=== PATIENT | female | born 1935 | race Caucasian/White ===

== ENCOUNTER 2018-06-25 08:11 | Outpatient (CLI) | payer MEDICARE ==
[2018-06-25] VITALS (11 sets, daily range): BP systolic 125–145; BP diastolic 44–68
[~2018-06-25] VITALS: Ht 149.9 cm; Wt 69.5 kg
[2018-06-25] MEDS ORDERED: regadenoson 0.4mg/5ml syringe IV ONE ×2 (08:50→09:43)
[2018-06-25] MEDS ORDERED: normal saline 1000ml 1,000 ML IV SCH (08:55)
[2018-06-25] MEDS ORDERED: nitroGLYCERIN 0.4mg SUBLingual tab SL PRN (08:55)
[2018-06-25] MEDS ORDERED: aminophylline 250mg/10ml inj. IV PRN (08:55)
[2018-06-25] MEDS ORDERED: aminophylline inj. 10 ML IV ONE (09:43)
== END 2018-06-25 23:59 | disposition home or self-care (01) ==
LOC: RAD 08:11
PROVIDERS: ATTEND Internal Medicine Cardiovascular Disease
DX: Z01.810 Encounter for preprocedural cardiovascular examination (principal); R94.31 Abnormal electrocardiogram [ECG] [EKG]; Z87.891 Personal history of nicotine dependence; Z88.0 Allergy status to penicillin
CPT/HCPCS: 78452; 93017; A9500; J0280; J7030

== ENCOUNTER 2022-07-04 05:32 | Day surgery (SDC) | payer MEDICARE, MEDICAID ==
[2022-06-27 15:35] LABS: CLARITY,URINE CLOUDY (Clear); COLOR,URINE YELLOW (Yellow); GLUCOSE, URINE NEGATIVE (Neg); KETONES,URINE 15 mg/dl (Neg); LEUKOCYTE ESTERASE ,URINE TRACE (Neg); NITRITES, URINE NEGATIVE (Neg); OCCULT BLOOD,URINE NEGATIVE (Neg); PROTEIN,URINE NEGATIVE (Neg); UROBILINOGEN,URINE 0.2 E.U/dL (0.2-1.0)
[2022-06-27 15:36] LABS: BASOPHILS % (AUTO) 0.7 % (0-1); EOSINOPHILS # (AUTO) 0.1 X10'3 (0-0.9); LYMPHOCYTES # (AUTO) 2.4 X10'3 (1.1-4.8); LYMPHOCYTES % (AUTO) 37.6 % (21-51); MEAN CORPUSCULAR HEMOGLOBIN 31.6 PG (27.0-31.0); MEAN CORPUSCULAR HGB CONC 32.8 g/dL (33.0-36.5); MEAN CORPUSCULAR VOLUME 96.2 FL (78-98); MEAN PLATELET VOLUME 8.7 FL (7.4-10.4); MONOCYTES # (AUTO) 0.8 X10'3 (0-0.9); MONOCYTES % (AUTO) 12.1 % (2-12); NEUTROPHILS # (AUTO) 3.1 X10'3 (1.8-7.7); NEUTROPHILS % (AUTO) 48.6 % (42-75); PRE OP HEMATOCRIT 38.6 % (35.0-45.0); PRE OP HEMOGLOBIN 12.7 g/dL (12.0-16.0); PRE OP PLATELET COUNT 164 X10'3 (140-440); RED BLOOD COUNT 4.01 X10'6 (4.20-5.60); RED CELL DISTRIBUTION WIDTH 15.1 % (11.5-14.5)
[2022-06-27 15:38] LABS: UA COLLECTION TYPE CLN CATCH MIDSTREAM
[2022-06-27 15:53] LABS: BACTERIA,URINE 1+ /HPF (Neg); MUCUS STRANDS MODERATE /LPF (Neg); RBC,URINE 0-2 /HPF (0-2); SQUAMOUS EPITHELIAL CELL,UR MODERATE /LPF (FEW); TRANSITIONAL EPI CELLS,URINE FEW /HPF
[2022-06-27 15:54] LABS: ALBUMIN 3.6 G/DL (3.4-5.0); ALBUMIN/GLOBULIN RATIO 0.8 (1.1-1.5); ALKALINE PHOSPHATASE 25 IU/L (46-116); BLOOD UREA NITROGEN 21 MG/DL (7-18); BUN/CREATININE RATIO 21.2 (6.6-38.0); CALCIUM 9.2 MG/DL (8.5-10.1); CHLORIDE 107 MMOL/L (99-107); CREATININE 0.99 MG/DL (0.40-0.90); PRE OP ALT 22 U/L (30-65); PRE OP ANION GAP 6 (8-16); PRE OP AST 24 U/L (10-37); PRE OP BILIRUB, TOTAL 0.3 MG/DL (0.0-1.0); PRE OP GLUCOSE 115 MG/DL (70-104); PRE OP POTASSIUM 4.4 MMOL/L (3.4-5.1); PRE OP SODIUM 143 MMOL/L (135-145); TOTAL CARBON DIOXIDE 30.1 MMOL/L (24-32); TOTAL PROTEIN 8.1 G/DL (6.4-8.2); eGFR 53 ML/MIN
[~2022-07-04] VITALS: Ht 149.9 cm; Wt 70.3 kg
[2022-07-04] VITALS (9 sets, daily range): BP systolic 127–151; BP diastolic 59–70
[~2022-07-04 05:32] MED LIST: ALEN70TA80 PO; CALC-854 PO; CAPS42.514 TOP; FERR325T32 PO; FOLI1TAB27 PO; METH2.5T PO; OMEP20TA23 PO; [UNRECOGNIZED DRUG - OTHER]; clindamycin-Cleocin 900mg/D5W 50 ML IV ONE; famotidine 20mg tablet PO ONE; ringers solution, lacted 1,000 ML IV SCH
--- NOTE | 2022-07-04 06:40 | NUR ---
PATIENT STATES DNR - INFORMED OF FULL CODE IN OR AND PATIENT AGREES. Addendum: 07/04/22 at 0707 by Chema Salinas RN RN Amended: Links added.
[2022-07-04] MEDS ORDERED: BUPIVAcaine/PF 5 mg/ml 10ml ONE (07:02)
[2022-07-04] MEDS ORDERED: ROPIVAcaine 0.5% (5mg/ml) 30ml vial ONE (07:02)
[2022-07-04] MEDS ORDERED: bacitracin 15gm ointment TP ONE (07:03)
[2022-07-04] MEDS ORDERED: sevoflurane 250ml liquid IH ONE (07:17)
[2022-07-04] MEDS ORDERED: fentaNYL/PF 50MCG/1 ML 2ML syringe ONE (07:17)
[2022-07-04] MEDS ORDERED: midazolam 1 mg/ML 2ml injection ONE (07:17)
[2022-07-04] MEDS ORDERED: ondansetron/PF 4mg/2ml inj ONE (07:17)
[2022-07-04] MEDS ORDERED: LIDOcaine 2% (20mg/ml) 5ml vial ONE (07:21)
[2022-07-04] MEDS ORDERED: propofol inj 20 ML IV ONE (07:21)
[2022-07-04] MEDS ORDERED: BUPIVAcaine/PF 7.5mg/ml (0.75%) 10ml vial ONE (07:37)
[2022-07-04] MEDS ORDERED: dexamethasone sod phosphate 4mg/ml inj. ONE (07:37)
[2022-07-04] MEDS ORDERED: LIDOcaine 1%/PF 5ML 10 MG/ML VIAL ONE (07:37)
[2022-07-04] MEDS ORDERED: meperidine/PF 25mg/ml syringe IV PRN ×3 (08:00)
[2022-07-04] MEDS ORDERED: proCHLORperazine 10 MG/2 ml inj IV PRN (08:00)
[2022-07-04] MEDS ORDERED: morphine 2 MG/ML inj. syringe IV PRN (08:00)
[2022-07-04] MEDS ORDERED: ondansetron/PF 4mg/2ml inj IV PRN (08:00)
[2022-07-04] MEDS ORDERED: ringers solution, lacted 1,000 ML IV SCH (08:00)
[2022-07-04] MEDS ORDERED: morphine 4 MG/ML inj SYRINge IV PRN (08:00)
[2022-07-04] MEDS ORDERED: acetaminophen 1,000mg/100ml IV 100 ML IV ONE (08:32)
--- NOTE | 2022-07-04 08:45 | NUR ---
Received from OR via , accompanied by Anesthesiologist TRIP AND OR NURSE and report given by Anesthesiolgist. PT IS DROWSY YET REPSONDS TO VERBAL STIMULI. DENIES PAIN OR DISCOMFORT. RT FOOT IN GAUZE, ANAHY WRAP AND BOOT IN PLACE; CDI. VSS Addendum: 07/04/22 at 0903 by Melany Moser RN Amended: Links added.
--- NOTE | 2022-07-04 09:55 | NUR ---
I HAVE REVIEWED D/C INSTRUCTIONS WITH PATIENT AND THEY HAVE VERBALIZED UNDERSTANDING OF INSTRUCTIONS. PATIENT D/C HOME WITH ALL BELONGINGS AND FAMILY GAVE TRANSPORT Addendum: 07/04/22 at 1010 by Melany Moser RN Amended: Links added.
== END 2022-07-04 09:55 | disposition home or self-care (01) ==
LOC: PAS 05:32
PROVIDERS: ATTEND Podiatrist Foot & Ankle Surgery
DX: M20.21 Hallux rigidus, right foot (principal); G89.18 Other acute postprocedural pain; M06.9 Rheumatoid arthritis, unspecified; K21.9 Gastro-esophageal reflux disease without esophagitis; M81.0 Age-related osteoporosis without current pathological fracture; M16.11 Unilateral primary osteoarthritis, right hip; Z90.710 Acquired absence of both cervix and uterus; Z98.890 Other specified postprocedural states; Z96.641 Presence of right artificial hip joint; Z87.891 Personal history of nicotine dependence; Z88.0 Allergy status to penicillin; Z72.89 Other problems related to lifestyle; Z79.899 Other long term (current) drug therapy; Z82.49 Family history of ischemic heart disease and other diseases of the circulatory system; Z82.0 Family history of epilepsy and other diseases of the nervous system
CPT/HCPCS: 28750; 36415; 64450; 73620; 76000; 80053; 81001; 82948; 85025; 87088; A6223; C1713; J0131; J1100; J2250; J2405; J2704; J3010; J3490; J7030; J7120; Z7506; Z7508; Z7512; A4215; A4618; A6449; A7000; J2795

== ENCOUNTER 2024-08-18 08:33 | Outpatient (CLI) | payer MEDICARE, MEDICAID ==
[~2024-08-18] VITALS: Ht 148.6 cm; Wt 69.9 kg
[~2024-08-18 08:33] MED LIST changes: -clindamycin-Cleocin 900mg/D5W 50 ML IV ONE; -famotidine 20mg tablet PO ONE; -ringers solution, lacted 1,000 ML IV SCH
[2024-08-18 09:35] VITALS: PULSE 85; RESP 16; O2SAT 94
[2024-08-18 09:47] VITALS: PULSE 78; RESP 16
[2024-08-18] MEDS: albuterol 2.5 MG/3 ML nebule NEB ONE (10:53)
== END 2024-08-18 23:59 | disposition home or self-care (01) ==
LOC: RT 08:33
PROVIDERS: ATTEND Internal Medicine Cardiovascular Disease
DX: R06.02 Shortness of breath (principal); R06.2 Wheezing
CPT/HCPCS: 85018; 94060; 94727; 94729; 94760